=== PATIENT | female | born 1995 | race Caucasian/White ===

== ENCOUNTER 2017-01-23 18:55 | Emergency (ER) | payer SELFPAY ==
[~2017-01-23] VITALS: Ht 157.5 cm; Wt 61.3 kg
[2017-01-23] MEDS ORDERED: SODIUM CHLORIDE 0.9% 1,000 ML IV ONE (19:28)
[2017-01-23] MEDS ORDERED: LORazepam 2 MG/ML, 1ML ONE (19:29)
[2017-01-23] MEDS ORDERED: ONDANSETRON 2MG/ML, 2ML IVPush ONE (19:30)
[2017-01-23] MEDS ORDERED: LORazepam 2 MG/ML, 1ML IVPush ONE (19:30)
[2017-01-23] MEDS ORDERED: SODIUM CHLORIDE FLUSH 10ML SYR IVF ONE (19:30)
[2017-01-23 19:55] LABS: BLOOD UREA NITROGEN 15 mg/dL (7-18)
[2017-01-23 19:59] LABS: IS PT STATUS REG ER OR PRE ER? YES
[2017-01-23] MEDS ORDERED: PLEASE ENTER ALLERGIES MC SCH ×2 (20:00)
[2017-01-23] MEDS ORDERED: ONDANSETRON 2MG/ML, 2ML ONE (20:01)
[2017-01-23] MEDS ORDERED: POTASSIUM CHLORIDE 20 MEQ TAB.ER.PRT ONE (20:18)
[2017-01-23] MEDS ORDERED: POTASSIUM CHLORIDE 20 MEQ TAB.ER.PRT PO ONE (20:30)
[2017-01-23 21:41] VITALS: BP 111/60
== END 2017-01-23 22:24 | disposition home or self-care (01) ==
LOC: ED 20:39
DX: F41.1 Generalized anxiety disorder (principal); M94.0 Chondrocostal junction syndrome [Tietze]; F12.10 Cannabis abuse, uncomplicated
CPT/HCPCS: 36415; 71020; 80048; 82040; 84484; 85025; 85379; 93005; 96361; 96374; 99285; J2405; J7030; Q0177